=== PATIENT | female | born 1950 | race Caucasian/White ===

== ENCOUNTER 2019-03-02 07:47 | Emergency (ER) | payer OTHER, SELFPAY ==
[2019-03-02 07:48] VITALS: BP 135/68; PULSE 60; RESP 20; TEMP 36.6; O2SAT 95; BMI 38.7
--- NOTE | 2019-03-02 08:22 | ED.DCSUM_ITS ---
- ER Visit Summary Date of Service: 03/02/19 Chief Complaint: Sent by primary care physician's office due to abnormal kidney function on recent labs. 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 Also has had an ab normal heart rhythm in the past they do not specifically given the name I asked him if it was A. fib and they do not think so. For that she was treated by a doctor in [place]. That has since resolved. She is also had multiple prior surgeries. Had recent lab work done by her primary care physician and was told her kidney function was abnormal and her potassium was low and she should go to the emergency department. She denies any nausea, vomiting or diarrhea. Physical Examination: Older female no acute distress. Vital signs are stable and afebrile. H EENT exam unremarkable. Reactive light. Extra motions are intact. Normal speech. No facial droop. Neck nontender. Lungs clear to auscultation bilaterally. Heart regular rhythm rate about 60. Abdomen soft and nontender. Normal bowel sounds without peritoneal signs. Remedies moves all 4. Calves are nontender without edema or cords. She has normal motor strength with both her hands and feet. Neurologically she is awake and alert. No facial droop. Normal speech. Normal motor strength and sensation. NIH score of 0. Test Results: CBC shows no acute abnormality. Normal white count 8. Normal hemoglobin 14. BMP his potassium 3.4 just below normal. She is already on potassium replacement. Her anion gap is 7. Her BUN is 57 her creatinine is 1.41. She has some renal dysfunction a lot of this may be from dehydration. Emergency Department Course and Treatment: Patient's exam is unremarkable. There are no neurological findings. Reportedly she was sent in due to abnormal renal function on recent labs. Repeat exam no change. She will be treated with a liter normal saline IV. I discussed with her and her family test results. Need to follow-up with primary care physician and have her kidney function rechecked later this week. Continue her current medications. Treatment Plan: Plenty of fluids and rest. Follow-up with PCP and have her kidney function rechecked later this week. Disposition: Discharge Impression: Mild hypokalemia. Renal insufficiency and mild dehydration This note was generated with [employer] software. It may contain incorrect words, spelling, and punctuation that were not noted in review of the chart prior to signing ED Disposition - Plan for ED Patient: Referrals: Shravan Cordon DO [Primary Care Provider] -
[2019-03-02 08:46] LABS: Absolute Lymphocyte Count 2.02 X10^3/uL (0.83-4.51); Absolute Neutrophil Count 4.9 X10^3/uL (2.0-7.7); Basophil% 1.2 % (0-1); Eosinophil# 0.26 X10^3/uL; Eosinophils% 3.1 % (0-5); Hematocrit 41.6 % (37-47); Hemoglobin 14.1 g/dL (12.0-15.0); Lymphocyte # 2.02 X10^3/ul (4.0); Lymphocyte % 23.8 % (19-41); Mean Corp Hgb Conc 33.9 g/dL (32-36); Mean Corpuscular Volume 94.3 fL (81-99); Mean Platelet Vol. 10.1 fl (6.2-12.0); Monocyte# 1.13 X10^3/uL; Monocyte% 13.3 % (0-10); NRBC Flagged by Analyzer 0 % (0-5); Neutrophil # 4.94 X10^3/uL (2.7-7.7); Neutrophil % 58.1 % (47-70); Platelet Count 381 K/mm3 (150-450); RBC Distribution Width CV 14.1 % (11.6-14.6); RBC Distribution Width SD 49.1 fl (35.1-43.9); Red Blood Count 4.41 M/mm3 (4.2-5.4); White Blood Count 8.5 K/mm3 (4.4-11.0)
[2019-03-02 08:58] LABS: Anion Gap 7 (5-15); BUN 57 mg/dL (7-18); BUN/Creat Ratio 40.4 RATIO (10-20); Calcium,Total 10.1 mg/dL (8.5-10.1); Chloride 97 mmol/L (98-107); Creatinine, Serum 1.41 mg/dL (0.55-1.02); EST Glomerular Filtration Rate 39 mL/min (>60); Est Glom Filt Rate - Afr Amer 47 mL/min (>60); Estimated Creatinine Clearance 34.76 ml/min; Glucose 136 mg/dL (74-106); Potassium 3.4 mmol/L (3.5-5.1); Sodium Level 138 mmol/L (136-145)
[2019-03-02] MEDS: 0.9% Normal Saline 1,000 ML 999 ML IV (09:20)
--- NOTE | 2019-03-02 09:26 | ED.DEP ---
ED Disposition - Plan for ED Patient: Disposition: Home or Assisted Living Instructions: DEHYDRATION (4y-Adult) Referrals: Shravan Cordon DO [Primary Care Provider] - 5-7 Days Additional Instructions: Follow-up with your doctor later this week to have your kidney function rechecked. Plenty of fluids and rest at least four 8 ounce glasses of water a day and/or Gatorade. Continue your potassium.
[2019-03-02 10:12] VITALS: BP 124/65; PULSE 58; RESP 18; O2SAT 96
== END 2019-03-02 10:32 | disposition home or self-care (01) ==
PROVIDERS: Emergency Provider Emergency Medicine; Family Provider Family Medicine; PCP Family Medicine
DX: E87.6 Hypokalemia (principal); E86.0 Dehydration; N28.9 Disorder of kidney and ureter, unspecified; I10 Essential (primary) hypertension; Z86.2 Personal history of diseases of the blood and blood-forming organs and certain disorders involving the immune mechanism; Z90.81 Acquired absence of spleen
CPT/HCPCS: 80048; 85025; 96360; 99285; J7030; A4216

== ENCOUNTER → 2019-12-15 | Outpatient (CLI) | payer OTHER, SELFPAY ==
[2019-08-15 15:33] VITALS: BMI 38.7
== END | disposition home or self-care (01) ==
LOC: LABSPEC 14:54
PROVIDERS: PCP Family Medicine; Visit Provider Family Medicine
DX: N39.0 Urinary tract infection, site not specified (principal)
CPT/HCPCS: 87086; 87088